=== PATIENT | female | born 1970 | race American Indian/Alaskan Native ===

== ENCOUNTER 2021-08-31 12:45 | Outpatient (CLI) | payer BC ==
--- NOTE | 2021-08-31 13:28 | XRay Report ---
CHEST 2 VIEWS INDICATION / CLINICAL INFORMATION: SHORTNESS OF BREATH. COMPARISON: None available. FINDINGS: SUPPORT DEVICES: None. HEART / MEDIASTINUM: No significant abnormality. LUNGS / PLEURA: No significant pulmonary or pleural abnormality. No pneumothorax. ADDITIONAL FINDINGS: No significant additional findings. IMPRESSION: 1. No acute findings. Signer Name: Charles Roy DO Signed: 08/31/2021 1:24 PM Workstation Name: [id number]
--- NOTE | 2021-08-31 14:26 | Nuclear Medicine Report ---
NUCLEAR MEDICINE PERFUSION LUNG SCAN INDICATION / CLINICAL INFORMATION: SHORTNESS OF BREATH. TECHNIQUE: 5.1 mCi of Tc-99m MAA were given by IV. COMPARISON: Chest radiograph dated 08/31/2021. FINDINGS: PERFUSION: No significant perfusion defects. ADDITIONAL FINDINGS: None. IMPRESSION: 1. Low probability for pulmonary embolism. Signer Name: Antolin Pickard MD Signed: 08/31/2021 2:22 PM Workstation Name: [id number]
== END 2021-08-31 12:46 | disposition home or self-care (01) ==
LOC: NM 12:45
PROVIDERS: ATTEND Internal Medicine Cardiovascular Disease
DX: R06.02 Shortness of breath (principal)
CPT/HCPCS: 71046; 78580; A9540

== ENCOUNTER 2021-10-09 09:07 | Outpatient (CLI) | payer BC ==
[2021-10-09 10:22] LABS: Hematocrit 22.4 % (30.3-42.9); Hemoglobin 7.5 gm/dl (10.1-14.3); Mean Corpuscular HGB Conc 34 % (30-34); Mean Corpuscular Volume 103 fl (79-97); Platelet Count 316 K/mm3 (140-440); Red Blood Count 2.17 M/mm3 (3.65-5.03)
[2021-10-09 10:46] LABS: Albumin 3.3 g/dL (3.9-5)
== END 2021-10-09 09:08 | disposition home or self-care (01) ==
LOC: LAB 09:07
PROVIDERS: ATTEND Internal Medicine Nephrology
DX: R94.4 Abnormal results of kidney function studies (principal)
CPT/HCPCS: 36415; 80048; 82040; 84100; 85027

== ENCOUNTER 2021-10-17 04:16 | Emergency (ER) | payer BC, OTHER ==
[2021-10-17 04:57] VITALS: BP 173/94
--- NOTE | 2021-10-17 06:20 | Emergency Department Report ---
ED General Adult HPI - General Chief complaint: Extremity Injury, Lower Stated complaint: LEG AND FOOT SWELLING Time Seen by Provider: 10/17/21 06:07 Source: patient Mode of arrival: Ambulatory Limitations: No Limitations - History of Present Illness Initial comments: Patient presents with swelling in both feet and ankles. She has noticed swelling over the last week or 2. She had been in the hospital here. She followed up with her primary care physician who said that her blood pressure medicine was affecting her kidneys. They changed her medication. Subsequent to that she noticed increased swelling in the feet and ankles. 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 She has been changed on her medication twice. She states that she is still having swelling. She is taking Lasix 20 mg a day. She is not using sequential compression devices. She states that she still eats a little bit of salt. She came in for evaluation treatment because of the pain and swelling. She has a follow-up appointment on the but did not feel she could wait that long. Has no shortness of breath. - Related Data Home Medications Medication Instructions Recorded Confirmed Last Taken Alendronate Sodium [Fosamax] 70 mg PO QWEEK 09/24/21 09/24/21 Unknown Atorvastatin (Nf) [Lipitor] 10 mg PO QHS 09/24/21 09/24/21 Unknown Benzonatate [Tessalon Perles] 200 mg PO Q8HR PRN 09/24/21 09/24/21 Unknown Ergocalciferol (Vitamin D2) 50,000 unit PO QWEEK 09/24/21 09/24/21 Unknown [Drisdol] Ferrous Sulfate [Feosol 325 MG tab] 325 mg PO TID 09/24/21 09/24/21 Unknown Fluticasone Propionate [Flovent 50 mcg IH DAILY 09/24/21 09/24/21 Unknown Diskus] Folic Acid [Folvite] 1 mg PO QDAY 09/24/21 09/24/21 Unknown Lisinopril/Hydrochlorothiazide 1 mg PO BID 09/24/21 09/24/21 Unknown amLODIPine 5 mg PO DAILY 09/24/21 09/24/21 Unknown Previous Rx's Medication Instructions Recorded Last Taken Type Furosemide [Lasix TAB] 40 mg PO QDAY #10 tablet 10/17/21 Unknown Rx Potassium Chloride [K-Dur] 20 meq PO BID #20 tab 10/17/21 Unknown Rx Allergies Allergy/AdvReac Type Severity Reaction Status Date / Time No Known Allergies Allergy Verified 09/23/21 22:00 ED Review of Systems ROS: Stated complaint: LEG AND FOOT SWELLING Other details as noted in HPI Comment: All other systems reviewed and negative Constitutional: denies: fever Eyes: denies: vision change ENT: denies: throat pain Respiratory: denies: cough Cardiovascular: denies: chest pain Endocrine: unexplained weight gain Gastrointestinal: denies: abdominal pain Genitourinary: denies: dysuria Musculoskeletal: denies: back pain Skin: denies: rash Neurological: denies: headache Hematological/Lymphatic: denies: easy bruising ED Past Medical Hx - Past Medical History Previous Medical History?: Yes Hx Hypertension: Yes Additional medical history: Lupus, high cholesterol - Surgical History Past Surgical History?: Yes Additional Surgical History: Hip replacement both hips - Family History Family history: hypertension - Social History Smoking Status: Never Smoker Substance Use Type: None - Medications Home Medications: Home Medications Medication Instructions Recorded Confirmed Last Taken Type Alendronate Sodium [Fosamax] 70 mg PO QWEEK 09/24/21 09/24/21 Unknown History Atorvastatin (Nf) [Lipitor] 10 mg PO QHS 09/24/21 09/24/21 Unknown History Benzonatate [Tessalon Perles] 200 mg PO Q8HR PRN 09/24/21 09/24/21 Unknown History Ergocalciferol (Vitamin D2) 50,000 unit PO QWEEK 09/24/21 09/24/21 Unknown History [Drisdol] Ferrous Sulfate [Feosol 325 MG tab] 325 mg PO TID 09/24/21 09/24/21 Unknown History Fluticasone Propionate [Flovent 50 mcg IH DAILY 09/24/21 09/24/21 Unknown History Diskus] Folic Acid [Folvite] 1 mg PO QDAY 09/24/21 09/24/21 Unknown History Lisinopril/Hydrochlorothiazide 1 mg PO BID 09/24/21 09/24/21 Unknown History amLODIPine 5 mg PO DAILY 09/24/21 09/24/21 Unknown History Furosemide [Lasix TAB] 40 mg PO QDAY #10 tablet 10/17/21 Unknown Rx Potassium Chloride [K-Dur] 20 meq PO BID #20 tab 10/17/21 Unknown Rx ED Physical Exam - General Limitations: No Limitations, Other (Pulse ox noted and normal) General appearance: alert, in no apparent distress - Head Head exam: Present: atraumatic, normocephalic - Eye Eye exam: Present: normal appearance, EOMI - ENT ENT exam: Present: normal external ear exam - Neck Neck exam: Present: normal inspection - Respiratory Respiratory exam: Present: normal lung sounds bilaterally. Absent: respiratory distress - Cardiovascular Cardiovascular Exam: Present: regular rate, normal rhythm. Absent: JVD - GI/Abdominal GI/Abdominal exam: Present: soft - Extremities Exam Extremities exam: Present: normal capillary refill, pedal edema (4+ bilateral to the knee) - Back Exam Back exam: Absent: CVA tenderness (R), CVA tenderness (L) - Neurological Exam Neurological exam: Present: alert, oriented X3, CN II-XII intact. Absent: motor sensory deficit - Psychiatric Psychiatric exam: Present: normal affect, normal mood - Skin Skin exam: Present: warm, dry ED Course Vital Signs 10/17/21 04:53 Temperature 98.2 F Pulse Rate 87 Respiratory 18 Rate Blood Pressure 173/94 [Left] O2 Sat by Pulse 100 Oximetry - Reevaluation(s) Reevaluation #1: 10/17/21 09:44 Patient was discharged ED Medical Decision Making - Medical Decision Making Patient presented with dependent edema. There is no evidence of difficulty breathing, hypoxia, or chest pain. I do not believe she has pulmonary edema. Patient was treated symptomatically with increased diuretic and potassium. We discussed other measures including avoiding salt, elevating feet, and ANTHONY hose. She can follow-up with her regular doctor as scheduled. She has bilateral symptoms. It is unlikely this represents DVT. Critical Care Time: No Critical care attestation.: If time is entered above; I have spent that time in minutes in the direct care of this critically ill patient, excluding procedure time. ED Disposition Clinical Impression: Dependent edema Disposition: 01 HOME / SELF CARE / HOMELESS Is pt being admited?: No Condition: Stable Instructions: Edema, Sequential Compression Device Additional Instructions: ELEVATE FEET. USE COMPRESSION STOCKINGS. AVOID SALT. EAT PROTEIN. KEEP YOUR APPT WITH YOUR DOCTOR. Prescriptions: Potassium Chloride [K-Dur] 20 meq PO BID #20 tab Furosemide [Lasix TAB] 40 mg PO QDAY #10 tablet Referrals: PRIMARY CARE, [Primary Care Provider] - 3-5 Days
== END 2021-10-17 06:25 | disposition home or self-care (01) ==
LOC: ED 04:16
DX: R60.0 Localized edema (principal); I10 Essential (primary) hypertension
CPT/HCPCS: 99282

== ENCOUNTER 2021-10-19 15:24 | Outpatient (CLI) | payer BC ==
[2021-10-19 16:08] LABS: Albumin 3.3 g/dL (3.9-5); BUN/Creatinine Ratio 25; Blood Urea Nitrogen 25 mg/dL (7-17); Calcium 8.6 mg/dL (8.4-10.2); Hemolysis Index 3
[2021-10-19 16:38] LABS: Creatinine,Urine 35.2 mg/dL (0.1-20.0); Protein/Creatinine Ratio,Urine 2.24
[2021-10-19 16:46] LABS: Bilirubin,Urine NEG (Negative); Blood,Urine NEG (Negative); Color,Urine Straw (Yellow); Mucus,Urine FEW /HPF; Urobilinogen,Urine < 2.0 mg/dL (<2.0); WBC,Urine < 1.0 /HPF (0.0-6.0)
== END 2021-10-19 15:25 | disposition home or self-care (01) ==
LOC: LAB 15:24
PROVIDERS: ATTEND Internal Medicine Nephrology
DX: R94.4 Abnormal results of kidney function studies (principal)
CPT/HCPCS: 36415; 80048; 81001; 82040; 82570; 84100; 84156; 86038; 86160

== ENCOUNTER 2021-11-11 08:33 | Outpatient (CLI) | payer BC ==
[2021-11-11 09:44] LABS: Alanine Aminotransferase 11 units/L (7-56); Albumin 3.4 g/dL (3.9-5)
[2021-11-11 09:48] LABS: Bilirubin,Direct < 0.2 mg/dL (0-0.2)
== END 2021-11-11 08:34 | disposition home or self-care (01) ==
LOC: LAB 08:33
PROVIDERS: ATTEND Surgery
DX: K80.20 Calculus of gallbladder without cholecystitis without obstruction (principal)
CPT/HCPCS: 36415; 80076

== ENCOUNTER 2021-12-01 11:00 | Day surgery (SDC) | payer BC ==
[2021-11-27 09:54] LABS: Hematocrit 21.9 % (30.3-42.9); Hemoglobin 7.2 gm/dl (10.1-14.3); Mean Corpuscular HGB Conc 33 % (30-34); Mean Corpuscular Volume 95 fl (79-97); Platelet Count 509 K/mm3 (140-440); Red Cell Distribution Width 18.8 % (13.2-15.2)
[2021-11-27 10:16] LABS: Albumin 3.4 g/dL (3.9-5); Calcium 9.4 mg/dL (8.4-10.2)
--- NOTE | 2021-11-27 14:48 | Anesthesia Consultation ---
Anesthesia Consult and Med Hx Date of service: 12/01/21 - Airway Anesthetic Teeth Evaluation: Partials ROM Head & Neck: Adequate Mental/Hyoid Distance: Adequate Mallampati Class: Class II Intubation Access Assessment: Good - Pre-Operative Health Status ASA Pre-Surgery Classification: ASA4 Proposed Anesthetic Plan: General - Pulmonary Hx Smoking: Yes (STOPPED 2015) Hx Respiratory Symptoms: Yes (Mild pulmonary htn) SOB: Yes (SOB) Hx Pneumonia: No Hx Sleep Apnea: No (WILLIAM PRE SCREEN LOW RISK) - Cardiovascular System Hx Hypertension: Yes (X 25 YRS. ECHO 08/29 and 10/27. Negative NST 08/29) Hx Valvular Heart Disease: Yes - Central Nervous System Hx Back Pain: Yes (Rheumatoid arthritis) Hx Psychiatric Problems: No - Gastrointestinal Hx Gastroesophageal Reflux Disease: Yes - Endocrine Hx Renal Disease: Yes (Hx ARIANE and CKD. Lupus) - Hematic Hx Anemia: Yes (7.2/21.9 pt reports negative workup including bone marrow bx) Hx Sickle Cell Disease: No - Other Systems Hx Cancer: No - Additional Comments Anesthesia Medical History Comments: Was hospitalized recently at [facility]-records reviewed. Cardiac records on chart also reviewed.
--- NOTE | 2021-12-01 08:03 | Anesthesia Day of Surgery ---
Anesthesia Day of Surgery - Day of Surgery Patient Examined: Yes Patient H&P Reviewed: Yes Patient is NPO: Yes Beta Blockers: Yes
[~2021-12-01 11:00] MED LIST: ACETAMINOPHEN 325 MG TAB PO ONE; BUPIVACAINE/PF (0.5%) 5 MG/1 ML 30 ML VIAL INFILTRATI ONE; HYDROCORTISONE SOD SUCC 100 MG/2 ML VIAL ONE; HYDROmorphone 1 MG/1 ML INJ IV PRN; LACTATED RINGERS 1,000 ML IV SCH; LIDOCAINE (1%) 10 MG/1 ML VIAL 20 ML MDV INFILTRATI ONE; LIDOCAINE (1%) 10 MG/1 ML VIAL 20 ML MDV ONE; LIDOCAINE MPF (2%) 20 MG/1 ML VIAL 5 ML ONE; MIDAZOLAM 2 MG/2 ML INJ IV NR; ONDANSETRON 4 MG/2 ML INJ IV PRN; ONDANSETRON 4 MG/2 ML INJ ONE; ROCURONIUM 50 MG/5 ML INJ IV ONE; SCOPOLAMINE TRANSDERMAL PATCH 72 HR TD NR; WATER FOR IRRIG STERILE 1,500 ML BOTTLE IR ONE; ceFAZolin/STERILE WATER 2 GM/20 ML SYRINGE IV NR; fentaNYL 100 MCG/2 ML INJ ONE; propofoL 200 MG/20 ML VIAL IV ONE
[2021-12-01] MEDS ORDERED: HYDROmorphone 1 MG/1 ML INJ ONE (11:06)
[2021-12-01] MEDS ORDERED: GLYCOPYRROLATE 0.4 MG/2 ML INJ ONE (11:33)
[2021-12-01] MEDS ORDERED: NEOSTIGMINE 10MG/10 ML INJ MDV ONE (11:34)
--- NOTE | 2021-12-01 11:57 | Short Stay Summary ---
Short Stay Documentation Date of service: 12/01/21 - History Principal diagnosis: symptomatic cholelithiasis H&P: obtained from office - Allergies and Medications Current Medications: Allergies hydroxychloroquine [From Plaquenil] Allergy (Verified 11/23/21 17:36) DECREASED VISION metronidazole [From Flagyl] Allergy (Verified 11/23/21 17:36) LOSS OF CONSCIOUSNESS Home Medications Medication Instructions Recorded Confirmed Last Taken Type Atorvastatin (Nf) [Lipitor] 10 mg PO QHS 09/24/21 12/01/21 11/30/21 20:00 History Ergocalciferol (Vitamin D2) 50,000 unit PO QWEEK 09/24/21 12/01/21 11/30/21 09:00 History [Drisdol] Ferrous Sulfate [Feosol 325 MG tab] 325 mg PO DAILY 09/24/21 12/01/21 11/30/21 09:00 History Fluticasone Propionate [Flovent 50 mcg IH PRN PRN 09/24/21 11/30/21 Unknown History Diskus] Folic Acid [Folvite] 1 mg PO QDAY 09/24/21 12/01/21 11/30/21 09:00 History Furosemide [Lasix TAB] 40 mg PO QDAY #10 tablet 10/17/21 12/01/21 11/30/21 09:00 Rx Omeprazole 20 mg PO BID 11/30/21 12/01/21 12/01/21 05:00 History Potassium Chloride [K-Dur] 20 meq PO DAILY 11/30/21 12/01/21 11/30/21 09:00 History Prednisone [predniSONE (Sondra) ER 5 mg PO QDAY 11/30/21 12/01/21 12/01/21 05:00 History TAB] carvediloL [Coreg] 3.125 mg PO BID 11/30/21 12/01/21 12/01/21 05:00 History Active Medications Cefazolin Sodium (Cefazolin/Sterile Water 2 Gm/20 Ml Syringe) 2 gm IV PREOP NR Stop: 12/01/21 21:00 Hydromorphone HCl (Hydromorphone 1 Mg/1 Ml Inj) 0.5 mg IV Q10MIN PRN PRN Reason: Pain , Severe (7-10) Stop: 12/01/21 17:00 Lactated Ringer's (Lactated Ringers) 1,000 mls @ 125 mls/hr IV DIRECT GEORGINA Last Admin: 12/01/21 08:30 Dose: 125 mls/hr Midazolam HCl (Midazolam 2 Mg/2 Ml Inj) 2 mg IV PREOP NR Stop: 12/01/21 23:59 Ondansetron HCl (Ondansetron 4 Mg/2 Ml Inj) 4 mg IV ONCE PRN PRN Reason: Nausea And Vomiting Stop: 12/01/21 17:00 Scopolamine (Scopolamine Transdermal Patch 72 Hr) 1 each TD PREOP NR Stop: 12/01/21 20:00 Last Admin: 12/01/21 08:30 Dose: 1 each - Brief post op/procedure progress note Date of procedure: 12/01/21 Pre-op diagnosis: symptomatic cholelithiasis Post-op diagnosis: same Procedure: robotic assisted cholecystectomy Anesthesia: GETA, local Findings: distended gallbladder Surgeon: DARIEN HAQ Participant Administrator: MARIO CLAYTON Estimated blood loss: minimal Pathology: list (gallbladder) Specimen disposition: to lab Condition: stable - Hospital course Hospital course: Pt observed in PACU and discharged to home in stable condition - Disposition Condition at discharge: Good Disposition: 01 HOME / SELF CARE / HOMELESS Short Stay Discharge Plan Additional Instructions: See printed instructions Follow up with: RICHARD GILLETTE MD [Primary Care Provider] - 7 Days DARIEN HAQ DO [Staff Physician] - 14 Days Prescriptions: HYDROcodone/APAP 5-325 [[place] 5/325] 1 each PO Q6HR PRN #15 tablet PRN Reason: Pain , Severe (7-10)
[2021-12-01] MEDS ORDERED: hydrALAZINE 20 MG/1 ML INJ ONE (12:01)
--- NOTE | 2021-12-01 12:39 | Operative Report ---
Operative Report Operative Report: Date of procedure: 12/01/21 Pre-op diagnosis: symptomatic cholelithiasis Post-op diagnosis: same Procedure: robotic assisted cholecystectomy Anesthesia: GETA, local Findings: distended gallbladder Surgeon: DARIEN HAQ Manager Web: MARIO CLAYTON Estimated blood loss: minimal Pathology: list (gallbladder) Specimen disposition: to lab Condition: stable Hospital course: Pt observed in PACU and discharged to home in stable condition Condition at discharge: Good Disposition: 01 HOME / SELF CARE / HOMELESS HPI an indication: 51-year-old female who presented to the surgery clinic with complaints of intermittent sharp right upper quadrant abdominal pain. Patient had previously been admitted to [facility] and was diagnosed with acute cholecystitis. Imaging studies included CT scan abdomen and pelvis, right upper quadrant ultrasound, HIDA scan. Her LFTs were initially elevated but improved during the course of the admission. The patient's symptoms improved with antibiotics and she elected to continue with nonsurgical management. She presented back to the surgery clinic several weeks later with intermittent right upper quadrant abdominal pain. At that time cholecystectomy was once again recommended. The patient was agreeable at this time. All risks, benefits, alternatives to surgery were discussed in detail and questions answered. Consent was obtained for robotic assisted laparoscopic, possible open cholecystectomy, possible cholangiogram. Procedure in detail: The patient was identified in the preoperative area and taken back to the operating room, placed on the operating room table in supine position. After anesthesia was induced, the abdomen was prepped and draped in usual sterile fashion and timeout was performed. Local anesthetic was infiltrated into all of the skin incision sites. A edel incision was made in the left upper quadrant at Siddiqi's point through which a Veress needle was inserted. The Veress needle positioning was confirmed using saline drop test and the abdomen insufflated to 15 mmHg without incident. A supra umbilical incision was made through which a 5 mm Optiview trocar was placed. The abdomen was inspected and there was no underlying injury to the abdominal structures. The Veress needle was removed. An 8 mm robotic trocar was placed in the right upper abdomen, and the left lower abdomen, and in the left lateral abdomen all under direct visualization. The 5 mm supraumbilical trocar was removed and replaced with a 12 mm balloon trocar under direct visualization. The patient was placed in reverse Trendelenburg and tilted to the left. The robot was then docked. A monopolar hook was placed in arm #1, a caudier grasper in arm #2, and a prograsp in arm #3. The surgeon was then transferred to the console. The gallbladder was distended. It was grasped and retracted cephalad and above the liver. The cystic duct and artery were carefully skeletonized. The medial and lateral peritoneal attachments to the gallbladder were dissected using a combination of blunt dissection and hook electrocautery. The cystic duct and artery were the only 2 structures seen entering the gallbladder and the critical view was successfully obtained. 2 hemolock clips were placed on the proximal aspect of the cystic duct and 1 distally, and 1 hemolock clip was placed on the proximal aspect of the cystic artery. The cystic artery was transected just distal to the clip using a hook electrocautery. The cystic duct was transected in between the clips using EndoShears by the surgeon. The gallbladder was dissected from the liver bed using electrocautery. Once completely dissected it was placed into the right upper quadrant and the liver bed was examined for hemostasis. This was very carefully ensured. The clips were visualized and intact. There was no bleeding or bile leakage. The robot was then undocked and the surgeon scrubbed back in. The remainder of the case was performed laparoscopically. The gallbladder was placed into a Endo Catch bag and removed from the abdomen via the 12mm port. The 12 mm port fascia was closed with interrupted 0 Vicryl sutures using the Cristiano Samuel device. The remaining ports were removed under direct visualization. Skin incisions were closed with 4-0 Monocryl subcuticular stitches and skin glue. All skin incisions were once again infiltrated with local anesthetic. At the end case all sponge, instrument, sharp counts were correct 2. The patient was awoken from anesthesia, extubated, and taken to PACU in stable condition.
--- NOTE | 2021-12-01 14:04 | Post Anesthesia Evaluation ---
- Post Anesthesia Evaluation Patient Participated: Yes Airway Patent: Yes Stable Respiratory Function: Yes Nausea/Vomiting: No Temp > 96.8F: Yes Pain Manageable: Yes Adequeate Hydration: Yes Anesthesia Complications: No
[2021-12-01 17:08] VITALS: BP 165/86
== END 2021-12-01 11:01 | disposition home or self-care (01) ==
LOC: OR 11:00
PROVIDERS: ATTEND Surgery
DX: K80.10 Calculus of gallbladder with chronic cholecystitis without obstruction (principal); G93.40 Encephalopathy, unspecified; E78.00 Pure hypercholesterolemia, unspecified; K21.9 Gastro-esophageal reflux disease without esophagitis; I12.9 Hypertensive chronic kidney disease with stage 1 through stage 4 chronic kidney disease, or unspecified chronic kidney disease; N18.9 Chronic kidney disease, unspecified; Z20.822 Contact with and (suspected) exposure to COVID-19; Z88.8 Allergy status to other drugs, medicaments and biological substances; Z79.899 Other long term (current) drug therapy; Z87.891 Personal history of nicotine dependence; Z96.643 Presence of artificial hip joint, bilateral
CPT/HCPCS: 36415; 47562; 80053; 85027; 86850; 86900; 86901; 88304; J0360; J0690; J1170; J1720; J1815; J2405; J2704; J2710; J3010; J3490; J7120; S2900; U0003

== ENCOUNTER 2021-12-03 14:09 | Outpatient (CLI) | payer BC ==
[2021-12-03 14:45] LABS: Protein/Creatinine Ratio,Urine 0.45
[2021-12-03 15:01] LABS: Bilirubin,Urine NEG (Negative); Blood,Urine NEG (Negative); Color,Urine Straw (Yellow); Mucus,Urine FEW /HPF; Protein,Urine <15 mg/dL mg/dL (Negative); Urobilinogen,Urine < 2.0 mg/dL (<2.0)
[2021-12-03 15:05] LABS: Albumin 3.6 g/dL (3.9-5); BUN/Creatinine Ratio 21; Blood Urea Nitrogen 23 mg/dL (7-17); Calcium 9.4 mg/dL (8.4-10.2); Hemolysis Index 19
[2021-12-03 15:08] LABS: Hemoglobin 7.9 gm/dl (10.1-14.3); Mean Corpuscular HGB Conc 33 % (30-34); Mean Corpuscular Volume 96 fl (79-97); Platelet Count 408 K/mm3 (140-440); Red Blood Count 2.51 M/mm3 (3.65-5.03)
[2021-12-03 15:12] LABS: Red Cell Distribution Width 20.2 % (13.2-15.2)
== END 2021-12-03 14:10 | disposition home or self-care (01) ==
LOC: LAB 14:09
PROVIDERS: ATTEND Internal Medicine Nephrology
DX: R80.9 Proteinuria, unspecified (principal)
CPT/HCPCS: 36415; 80048; 81001; 82040; 82570; 84100; 84156; 85027